=== PATIENT | female | born 1960 | race Caucasian/White ===

== ENCOUNTER 2017-02-26 12:14 | Emergency (ER) | payer BC ==
[2017-02-26 12:31] VITALS: BP 111/71
--- NOTE | 2017-02-26 13:34 | UC ---
Complaint Female HPI - HPI Summary HPI Summary: 57 year old female with Urinary Symptoms. "Bladder infection, I can feel it came on this morning." Suprapubic pain, urinary frequency, urinary urgency, dysuria, and "generally, just not feeling well" for a few hours. Patient took an Augmentin and Vitamin C one hour ago. When asked, denies fever, back pain, abdominal pain, NVD, gross hematuria, or abnormal vaginal discharge/itching/odor /pain. Last UTI "a few months ago, maybe it was a year ago". 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 PCP Juan and Urologist Abdulaziz (kidney stones). [ End ] - History Of Current Complaint Chief Complaint: UCGU Stated Complaint: URINARY COMPLAINT Time Seen by Provider: 02/26/17 13:24 Hx Obtained From: Patient - Allergies/Home Medications Allergies/Adverse Reactions: Allergies Allergy/AdvReac Type Severity Reaction Status Date / Time No Known Allergies Allergy Verified 02/26/17 12:26 Home Medications: Home Medications Ascorbic Acid TAB* [Vitamin C TAB*] 500 mg PO ONCE 02/26/17 [History Confirmed 02/26/17] PMH/Surg Hx/FS Hx/Imm Hx Previously Healthy: Yes - Surgical History Surgical History: Yes Surgery Procedure, Year, and Place: hernia repair, t&a, , gall bladder , kidney stone blasted. pilonidal CYST REMOVED - Family History Known Family History: Positive: None - Social History Occupation: Employed Full-time Lives: With Family Alcohol Use: Rare Substance Use Type: None Smoking Status (MU): Never Smoked Tobacco - Immunization History Most Recent Influenza Vaccination: Not the Season Review of Systems Genitourinary: Dysuria, Frequency, Urgency Is Patient Immunocompromised?: No All Other Systems Reviewed And Are Negative: Yes Physical Exam Triage Information Reviewed: Yes Appearance: Well-Appearing, No Pain Distress, Well-Nourished Vital Signs: Initial Vital Signs Temp 97.9 F 02/26/17 12:22 Pulse 73 02/26/17 12:22 Resp 16 02/26/17 12:22 BP 111/71 02/26/17 12:22 Pulse Ox 100 02/26/17 12:22 Vital Signs Reviewed: Yes Eye Exam: Normal ENT Exam: Normal Dental Exam: Normal Neck exam: Normal Neck: Positive: 1 Respiratory Exam: Normal Cardiovascular Exam: Normal Abdominal Exam: Normal Abdomen Description: Positive: Other: - mild suprapubic tenderness to palpation Musculoskeletal Exam: Normal Neurological Exam: Normal Psychological Exam: Normal Skin Exam: Normal Complaint Female Dx - Course Course Of Treatment: She did take augmentin 60 min prior to arrival -- per patient clinical UTI -- she desires to start Abx at this time, will stop the antibiotic if neg culture . she will f/u with Urology next week. - Differential Dx/Diagnosis Differential Diagnosis/HQI/PQRI: Urinary Tract Infection Provider Diagnoses: UTI / dysuria Discharge - Discharge Plan Condition: Good Disposition: HOME Prescriptions: Phenazopyridine 200 mg (NF) [Pyridium 200 MG tab *] 200 mg PO TID #6 tab Sulfamethox/Trimethoprim DS* [Bactrim DS 800/160 TAB*] 1 tab PO BID #10 tab Patient Education Materials: Urinary Tract Infection in Women (ED) Referrals: Lena Garland MD [Primary Care Provider] - 4 Days (Also f/u with Urology if needed )
--- NOTE | 2017-02-28 07:18 | UC ---
Progress - Progress Note Progress Note: Urince cx is neg. d/c bactrim & pyridium. f/u with pcp and/or HEADWAITER/HEADWAITRESS if sx persist fo further eval.
== END 2017-02-26 13:47 | disposition home or self-care (01) ==
LOC: UCCORT 12:14
DX: N39.0 Urinary tract infection, site not specified (principal)
CPT/HCPCS: 81003; 87086; 99212; G0463